=== PATIENT | female | born 1975 | race Caucasian/White ===

== ENCOUNTER → 2017-03-02 | Outpatient (CLI) | payer MEDICARE, OTHER ==
[~2017-03-02] MED LIST: AMOX1TAB61 PO; DIAZ5TAB4 PO; DOCU-30 PO; DULO60CA7 PO; FLEXIRIL PO; GABA600T14 PO; METH500T97 PO; MORP30TA PO; MORPHINE PO; MOTRIN PO; OXYC-229 PO; SENN-31 PO; SULF1TAB24 PO; TRAZ50TA18 PO
== END | disposition home or self-care (01) ==
LOC: RAD 11:53
PROVIDERS: ATTEND Nurse Practitioner
DX: S33.130A Subluxation of L3/L4 lumbar vertebra, initial encounter (principal); M47.897 Other spondylosis, lumbosacral region; M47.894 Other spondylosis, thoracic region; M48.04 Spinal stenosis, thoracic region; M25.78 Osteophyte, vertebrae; Z98.1 Arthrodesis status; X58.XXXA Exposure to other specified factors, initial encounter; Y93.89 Activity, other specified; Y92.89 Other specified places as the place of occurrence of the external cause; Y99.8 Other external cause status
CPT/HCPCS: 72072; 72110

== ENCOUNTER → 2018-08-10 | Outpatient (CLI) | payer OTHER ==
[~2018-08-10] MED LIST changes: +CYCL-259 PO; +DOCU-131 PO; -DOCU-30 PO; +FENO134C PO; +ICOS1CAP PO; +LIDOCAIN TP; +METH750T87 PO; +MORP60TA34 PO; -OXYC-229 PO; +OXYC-307 PO; +OXYC-432 PO; +PRAV40TA2 PO; +TRAZ-136 PO; -TRAZ50TA18 PO
[2018-08-10 12:31] LABS: BASOPHILS # (AUTO) 0.09 x10^3/uL (0-0.1); BASOPHILS % (AUTO) 1 % (0-1); EOSINOPHILS # (AUTO) 0.13 x10^3/uL (0-0.4); EOSINOPHILS % (AUTO) 1 % (1-7); LYMPHOCYTES % (AUTO) 45 % (22-44); MD NO; MEAN CORPUSCULAR HEMOGLOBIN 29.2 pg (27.0-34.8); MEAN CORPUSCULAR HGB CONC 33.6 g/dL (32.4-35.8); MEAN CORPUSCULAR VOLUME 86.8 fL (80-100); MEAN PLATELET VOLUME 8.1 fL (7.4-10.4); MONOCYTES # (AUTO) 0.54 x10^3/uL (0.2-0.8); MONOCYTES % (AUTO) 5 % (2-9); NEUTROPHILS # (AUTO) 4.68 x10^3/uL (1.8-6.8); NEUTROPHILS % (AUTO) 47 % (42-75); PLATELET COUNT 448 x10^3/uL (130-400); RED BLOOD COUNT 5.07 x10^6/uL (3.82-5.3); RED CELL DISTRIBUTION WIDTH 13.7 % (9.6-15.2)
== END | disposition home or self-care (01) ==
LOC: STAR 11:45
PROVIDERS: ATTEND Obstetrics & Gynecology Female Pelvic Medicine and Reconstructive Surgery
DX: Z01.818 Encounter for other preprocedural examination (principal); N81.4 Uterovaginal prolapse, unspecified; N83.201 Unspecified ovarian cyst, right side
CPT/HCPCS: 36415; 85025

== ENCOUNTER 2018-08-16 06:51 | Day surgery (SDC) | payer OTHER ==
[2018-08-10 13:00] VITALS: BP 142/79
[~2018-08-16] VITALS: Ht 160 cm; Wt 74.2 kg
[2018-08-16] MEDS ORDERED: LACTATED RINGERS 1,000 ML IV SCH ×2 (07:00→10:22)
[2018-08-16] MEDS ORDERED: LIDOCAINE-MPF 1%, 2ML INFIL ONE (07:00)
[2018-08-16 07:04] VITALS: BP 142/79
[2018-08-16] MEDS ORDERED: BUPIVACAINE 0.25% ONE ×2 (07:04→10:26)
[2018-08-16] MEDS ORDERED: INDIGO CARMINE 0.8%, 5ML ONE (07:04)
[2018-08-16] MEDS ORDERED: EPINEPHRINE 1 MG/ML, 1ML ONE (07:04)
[2018-08-16] MEDS ORDERED: THROMBIN 5,000 UNIT VIAL TP ONE (07:12)
[2018-08-16] MEDS ORDERED: NEOMY/POLYMYXIN B GU IRR. 1 ML IRRIG ONE (07:12)
[2018-08-16] MEDS ORDERED: FENTANYL PF 250 MCG/5ML ONE (07:24)
[2018-08-16] MEDS ORDERED: MIDAZOLAM 1 MG/ML, 2ML ONE (07:24)
[2018-08-16] MEDS ORDERED: ACETAMINOPHEN 500 MG TABLET PO ONE (07:30)
[2018-08-16] MEDS ORDERED: SCOPOLAMINE PATCH, 1.5MG PATCH.TD72 TD ONE (07:33)
[2018-08-16] MEDS ORDERED: LABETALOL 5MG/ML, 20ML IV PRN (08:30)
[2018-08-16] MEDS ORDERED: FENTANYL PF 100 MCG/2ML IV PRN (08:30)
[2018-08-16] MEDS ORDERED: OXYcodone 5 MG/5 ML ORAL.SOL UDC PO PRN (08:30)
[2018-08-16] MEDS ORDERED: DIPHENHYDRAMINE 50 MG/ML, 1ML IVPush PRN (08:30)
[2018-08-16] MEDS ORDERED: hydrALAzine 20 MG/ML, 1ML IV PRN (08:30)
[2018-08-16] MEDS ORDERED: MEPERIDINE/PF 25MG/0.5ML IVPush PRN (08:30)
[2018-08-16] MEDS ORDERED: HYDROmorphone 1 MG/ML, 1ML IV PRN (08:30)
[2018-08-16] MEDS ORDERED: PROCHLORPERAZINE 5 MG/ML, 2ML IV PRN (08:30)
[2018-08-16] MEDS ORDERED: PROMETHAZINE 25 MG/ML, 1ML IV PRN (08:30)
[2018-08-16] MEDS ORDERED: ONDANSETRON 2MG/ML, 2ML IV PRN (08:30)
[2018-08-16] MEDS ORDERED: ONDANSETRON 2MG/ML, 2ML IVPush PRN (10:30)
[2018-08-16] MEDS ORDERED: PROMETHAZINE 25 MG SUPP PR ONE (10:30)
[2018-08-16] MEDS ORDERED: PROPOFOL 10 MG/ML, 20ML ONE (10:30)
[2018-08-16] MEDS ORDERED: KETOROLAC 30 MG/1 ML IVPush PRN (10:30)
[2018-08-16] MEDS ORDERED: ONDANSETRON 2MG/ML, 2ML ONE (10:30)
[2018-08-16] MEDS ORDERED: NEOSTIGMINE 1 MG/ML, 10ML ONE (10:30)
[2018-08-16] MEDS ORDERED: SUCCINYLCHOLINE 20 MG/ML, 10ML ONE (10:30)
[2018-08-16] MEDS ORDERED: CEFAZOLIN 1,000 MG ONE (10:30)
[2018-08-16] MEDS ORDERED: DEXAMETHASONE 4 MG/ML, 1ML ONE (10:30)
[2018-08-16] MEDS ORDERED: GLYCOPYRROLATE 0.2MG/1ML, 5ML ONE (10:30)
[2018-08-16] MEDS ORDERED: ROCURONIUM 10MG/ML,5ML ONE (10:30)
[2018-08-16] MEDS ORDERED: OXYcodone 5 MG/5 ML ORAL.SOL UDC ONE (10:52)
[2018-08-16] MEDS ORDERED: KETOROLAC 30 MG/1 ML ONE (16:04)
[2018-08-16] MEDS: OXYcodone/APAP 5/325MG TABLET PO PRN ×2 (16:48→18:11)
== END 2018-08-16 18:15 | disposition home or self-care (01) ==
LOC: OUT 06:51
PROVIDERS: ATTEND Obstetrics & Gynecology Female Pelvic Medicine and Reconstructive Surgery
DX: N81.10 Cystocele, unspecified (principal); N39.46 Mixed incontinence; N95.2 Postmenopausal atrophic vaginitis; N73.6 Female pelvic peritoneal adhesions (postinfective); N81.6 Rectocele; G43.909 Migraine, unspecified, not intractable, without status migrainosus; F32.9 Major depressive disorder, single episode, unspecified; N83.8 Other noninflammatory disorders of ovary, fallopian tube and broad ligament; F41.9 Anxiety disorder, unspecified; Z90.49 Acquired absence of other specified parts of digestive tract; Z90.710 Acquired absence of both cervix and uterus; Z79.899 Other long term (current) drug therapy
CPT/HCPCS: 57288; 57425; 58661; 88302; C1771; C1781; J0171; J0330; J0690; J1100; J1885; J2250; J2405; J2704; J2710; J3010; J3490; J7120